=== PATIENT | male | born 1940 | race Caucasian/White ===

== ENCOUNTER → 2016-05-08 | Outpatient (CLI) | payer OTHER, MEDICARE ==
--- NOTE | 2016-05-08 15:00 | MR ---
MRI of the Lumbar Spine (Without Contrast) Clinical Indications: Low back pain and right lower extremity radicular symptomatology in a 75-year-o ld male. Technique: Sagittal and axial T1 and T2 MR sequences of the lumbar spine are performed without con trast. A sagittal STIR sequence was also obtained. Comparison to the previous lumbar MRI examination January 01, 2008. Findings: Lumbar vertebral bodies are of normal height without compression fractures. Conus medulla ris appears normal and ends at L1. T12-L1: Negative for disk herniation, canal stenosis, or nerve root compression. L1-L2: Negative for disk herniation or canal stenosis. There is facet hypertrophy without nerve root compression. L2-L3: Negative for disk herniation or canal stenosis. Facet hypertrophy is seen without nerve root i mpingement. L3-L4: Negative for disk herniation or canal stenosis. There is facet hypertrophy and ligamentous pro minence without significant neural foraminal impingement or nerve root compression. L4-L5: There is a diffuse disk bulge which is eccentric toward the right side where there may be an e lement of lateral disk herniation. Additionally, there is bilateral facet hypertrophy and ligamentous prominence. There is bilateral lateral recess stenosis, and there is moderate right neural foraminal impingement with compression of the L4 nerve root noted. L5-S1: Negative for disk herniation, canal stenosis, or nerve root compression. Impressions 1. Diffuse disk bulge, possible minimal right lateral disk herniation, as well as facet hypertrophy o n the right at L4-L5 results in compression of the right L4 nerve root. This could account for right lower extremity radicular symptomatology. 2. See the above report for findings at other levels.
== END ==
LOC: FIMAGING 10:47
PROVIDERS: ATTEND Physician Assistant
DX: M54.5 Low back pain (principal)

== ENCOUNTER → 2016-07-04 | Outpatient (CLI) | payer OTHER, MEDICARE | LOC: BHFA 09:30 | PROVIDERS: ATTEND Internal Medicine Cardiovascular Disease | DX: I25.10 Atherosclerotic heart disease of native coronary artery without angina pectoris (principal); I10 Essential (primary) hypertension | CPT/HCPCS: 78452; 93017; A9500; J2785 ==

== ENCOUNTER 2017-03-16 07:26 | Observation (INO) | payer OTHER, MEDICARE ==
[2017-03-16] MEDS ORDERED: diphenhydrAMINE 25 MG CAP PO ONE ×2 (07:30→07:51)
[2017-03-16] MEDS ORDERED: ASPIRIN EC 325 MG TAB PO ONE ×2 (07:30→07:52)
[2017-03-16] MEDS ORDERED: DIAZEPAM 5 MG TAB PO ONE (07:30)
[2017-03-16] MEDS ORDERED: NS 1,000 ML IV ONE (07:30)
[2017-03-16] MEDS ORDERED: FAMOTIDINE 20 MG TAB PO ONE (07:30)
[2017-03-16] MEDS ORDERED: FAMOTIDINE 20 MG TAB ONE (07:51)
[2017-03-16] MEDS ORDERED: DIAZEPAM 5 MG TAB ONE (07:53)
--- NOTE | 2017-03-16 07:53 | CPEKG ---
Heart Rate: 48 RR Interval: 1250 P-R Interval: 172 QRSD Interval: 96 QT Interval: 492 QTC Interval: 440 P [place]: 35 QRS [place]: 35 T Wave [place]: 9 EKG Severity - OTHERWISE NORMAL ECG - EKG Impression: SINUS BRADYCARDIA EKG Impression: NON-SPECIFIC ST DEPRESSION Electronically Signed By: Robert Akins 16-Mar-2017 11:44:53
[2017-03-16 08:13] LABS: % IMMATURE GRANULYOCYTES 0.3 % (0.0-1.1); ABSOLUTE IMMATURE GRANULOCYTES 0.02 10^3/uL (0.00-0.10); ADD DIFF? NO; ADD MORPH? NO; ADD SCAN? NO; ATYPICAL LYMPHOCYTE FLAG 0 (0-99); FRAGMENT RBC FLAG 0 (0-99); HEMATOCRIT 41.5 % (40.0-51.0); HEMOGLOBIN 14.8 g/dL (13.7-17.5); LEFT SHIFT FLG 0 (0-99); LIPEMIA HEMOLYSIS FLAG 90 (0-99); MEAN CELL HEMOGLOBIN 30.1 pg (27.9-34.1); MEAN CELL HEMOGLOBIN CONCENTR. 35.7 g/dL (32.4-36.7); MEAN CELL VOLUME 84.5 fL (81.5-99.8); MEAN PLATELET VOLUME 9.8 fL (8.7-11.7); PLATELET CLUMPS FLAG 0 (0-99); PLATELET COUNT 162 10^3/uL (150-400); RED BLOOD CELL COUNT 4.91 10^6/uL (4.40-6.38); RED CELL DISTRIBUTION WIDTH 12.4 % (11.5-15.2)
[2017-03-16 08:23] LABS: INR 1.09 (0.83-1.16)
[2017-03-16 08:29] LABS: ANION GAP 12 mEq/L (8-16); CALCIUM 9.6 mg/dL (8.5-10.4); CARBON DIOXIDE 27 mEq/l (22-31); CHLORIDE 104 mEq/L (97-110); CHOLESTEROL 145 mg/dL (140-220); CHOLESTEROL/HDL RATIO 4.14 RATIO (1.00-4.97); GLOMERULAR FILTRATION RATE > 60; GLUCOSE 141 mg/dL (70-100); HIGH DENSITY LIPOPROTEIN 35 mg/dL (40-65); LOW DENSITY LIPOPROTEIN 42 mg/dL (80-100); MAGNESIUM 1.7 mg/dL (1.6-2.3); NON-HIGH DENSITY LIPOPROTEIN 110 mg/dL (90-129); POTASSIUM 3.9 mEq/L (3.5-5.2); SODIUM 143 mEq/L (134-144); TRIGLYCERIDE 340 mg/dL (40-150); VERY LOW DENSITY LIPOPROTEINS 68 mg/dL (8-25)
[2017-03-16] MEDS ORDERED: LIDOCAINE 1% 300 MG/30 ML SDV ONE (09:03)
[2017-03-16] MEDS ORDERED: MIDAZOLAM 2 MG/2 ML VIAL ONE (09:04)
[2017-03-16] MEDS ORDERED: VERAPAMIL 5 MG/2 ML VIAL ONE (09:04)
[2017-03-16] MEDS ORDERED: HEPARIN 10,000 UNIT/10 ML MDV ONE (09:04)
[2017-03-16] MEDS ORDERED: fentaNYL 100 MCG/2 ML INJ ONE (09:04)
[2017-03-16] MEDS ORDERED: IOPAMIDOL (ISOVUE-370) 150 ML BTL IV ONE (09:05)
--- NOTE | 2017-03-16 10:26 | PDHPUP ---
History & Physical Update H&P update statement: This history and physical update is based on an assessment of the patient which was completed after admission or registration (within 24 hours), but prior to the surgery/procedure. H&P update: H&P reviewed & patient examined, no change in patient's condition since H&P completed
--- NOTE | 2017-03-16 10:26 | PDPROPOC ---
Sedation Plan of Care Sedation Plan of Care: vital signs stable, mental status noted, patient educated of risks, benefits, alternatives, patient can tolerate sedation ASA Classification: ASA 1 Planned drugs: fentanyl, midazolam Mallampati Score: Class 2 Mallampati Reference Image: Patient passed 3-3-2 rule?: Yes
[2017-03-16] MEDS ORDERED: BIVALIRUDIN 250 MG/5 ML VIAL IV ONE ×2 (10:43)
[2017-03-16] MEDS ORDERED: hydrALAZINE 20 MG/ML VIAL ONE (11:05)
[2017-03-16] MEDS ORDERED: PRASUGREL HCL 10 MG TAB ONE (11:16)
[2017-03-16] MEDS ORDERED: HYDROCODONE/APAP 5/325 TAB PO PRN (11:17)
[2017-03-16] MEDS ORDERED: ACETAMINOPHEN 325 MG TAB PO PRN (11:17)
[2017-03-16] MEDS ORDERED: PRASUGREL HCL 10 MG TAB PO ONE (11:17)
[2017-03-16] MEDS ORDERED: ATROPINE SULFATE 1 MG/10 ML SYR IVP PRN (11:17)
[2017-03-16] MEDS ORDERED: ONDANSETRON 4 MG/2 ML VIAL IVP PRN (11:17)
[2017-03-16] MEDS ORDERED: NS 1,000 ML IV SCH (11:30)
--- NOTE | 2017-03-16 11:30 | PDDXCAT ---
Diagnostic Cath Note - . Date: 03/16/17 Automation Driver: Jarred Indication: CCC Class III and IV angina on medical treatment - Procedure Access: right groin Procedure: left heart catheterization, coronary angiography, left ventriculogram , vein graft injection, TRUONG injection, other (PCI of SVG to PDA) - Materials Left Heart Cath size: 6F Left Heart Cath materials: standard multipack (JL4, JR4, pigtail) - Findings-Left Heart Catheterization LM: Normal. LAD: Mid-LAD 100%. LCX: Proximal to mid-circumflex 100%; proximal portion of small OM-2 with 90% lesion. RCA: Proximal RCA 100%. TRUONG: TRUONG to LAD patent. Free Radial Artery to diagonal patent. SVG to low OM branch patent. SVG to PDA patent with focal 90% lesion in the mid-body of the graft. EDP: 27 mmHg LVEF: 60% Wall motion: Normal. Complications: None Estimated blood loss: <50ml Closure method: Angioseal Assessment: 1) Normal LV systolic function. 2) CAD as described above. 3) Successful PCI of SVG to PDA using a single drug coated stent. Intervention: Based on the patient's clinical history and diagnostic angiography, the decision was made to perform PCI of the SVG to PDA. Patient received intravenous Angiomax. A 6 [place] Multipurpose A-1 guide catheter was advanced to the ostium of the SVG to PDA. A filter wire was positioned in the distal body of the graft. A 3.5 x 24 mm Synergy stent was advanced into position and deployed at high pressure. Final angiograms demonstrated 0% residual stenosis and JESSICA-III flow.
--- NOTE | 2017-03-16 11:35 | CPEKG ---
Heart Rate: 51 RR Interval: 1176 P-R Interval: 188 QRSD Interval: 104 QT Interval: 480 QTC Interval: 443 P [place]: 61 QRS [place]: 59 T Wave [place]: -48 EKG Severity - ABNORMAL ECG - EKG Impression: SINUS RHYTHM EKG Impression: NONSPECIFIC T ABNORMALITIES, INFERIOR LEADS Electronically Signed By: Robert Akins 16-Mar-2017 11:44:24
[2017-03-16] MEDS ORDERED: ALBUTEROL 60 PUFFS/8 GM MDI IH PRN (11:38)
[2017-03-16] MEDS ORDERED: ALBUTEROL 200 PUFFS/18 GM MDI IH PRN (14:04)
[2017-03-16] MEDS ORDERED: hydrALAZINE 20 MG/ML VIAL IVP ONE (15:00)
[2017-03-16] MEDS ORDERED: PNEUMOC 13-VAL CONJ-DIP CRM/PF 0.5 ML SYR IM ONE (15:19)
[2017-03-16] MEDS: LABETALOL HCL 100 MG TAB PO SCH (20:19)
[2017-03-16] MEDS ORDERED: NON-FORMULARY NEW DRUG (Simvastatin [Zocor] 40 MG) PO SCH (21:00)
[2017-03-16] MEDS ORDERED: ATORVASTATIN CALCIUM 20 MG TAB PO SCH (21:00)
[2017-03-16] MEDS ORDERED: FAMOTIDINE 20 MG TAB PO SCH (21:00)
[2017-03-16] MEDS ORDERED: traZODone 50 MG TAB PO SCH (21:00)
[2017-03-17 06:02] LABS: % IMMATURE GRANULYOCYTES 0.2 % (0.0-1.1); ABSOLUTE IMMATURE GRANULOCYTES 0.01 10^3/uL (0.00-0.10); ADD DIFF? NO; ADD MORPH? NO; ADD SCAN? NO; ATYPICAL LYMPHOCYTE FLAG 0 (0-99); FRAGMENT RBC FLAG 0 (0-99); HEMATOCRIT 38.7 % (40.0-51.0); HEMOGLOBIN 13.3 g/dL (13.7-17.5); LEFT SHIFT FLG 0 (0-99); LIPEMIA HEMOLYSIS FLAG 90 (0-99); MEAN CELL HEMOGLOBIN 29.2 pg (27.9-34.1); MEAN CELL HEMOGLOBIN CONCENTR. 34.4 g/dL (32.4-36.7); MEAN CELL VOLUME 85.1 fL (81.5-99.8); MEAN PLATELET VOLUME 10.2 fL (8.7-11.7); PLATELET CLUMPS FLAG 0 (0-99); PLATELET COUNT 157 10^3/uL (150-400); RED BLOOD CELL COUNT 4.55 10^6/uL (4.40-6.38); RED CELL DISTRIBUTION WIDTH 12.6 % (11.5-15.2)
[2017-03-17 06:12] LABS: ALBUMIN 3.5 g/dL (3.5-5.0); ANION GAP 11 mEq/L (8-16); ASPARTATE AMINOTRANSFERASE 24 IU/L (17-59); BILIRUBIN,TOTAL 0.5 mg/dL (0.1-1.4); CALCIUM 8.8 mg/dL (8.5-10.4); CARBON DIOXIDE 25 mEq/l (22-31); CHLORIDE 105 mEq/L (97-110); GLOMERULAR FILTRATION RATE > 60; GLUCOSE 104 mg/dL (70-100); LACTATE DEHYDROGENASE 339 IU/L (313-618); MAGNESIUM 1.7 mg/dL (1.6-2.3); POTASSIUM 3.8 mEq/L (3.5-5.2); SODIUM 141 mEq/L (134-144)
[2017-03-17 06:23] LABS: LOW DENSITY LIPOPROTEIN DIRECT 49 mg/dL (80-100)
--- NOTE | 2017-03-17 08:57 | CPEKG ---
Heart Rate: 68 RR Interval: 882 P-R Interval: 176 QRSD Interval: 88 QT Interval: 416 QTC Interval: 443 P [place]: 44 QRS [place]: 28 T Wave [place]: -49 EKG Severity - NORMAL ECG - EKG Impression: SINUS RHYTHM EKG Impression: NON-SPECIFIC ST DEPRESSION Electronically Signed By: Robert Akins 17-Mar-2017 15:36:42
[2017-03-17] MEDS ORDERED: ASPIRIN EC 325 MG TAB PO SCH (09:00)
[2017-03-17] MEDS ORDERED: VALSARTAN 80 MG TAB PO SCH (09:00)
[2017-03-17] MEDS ORDERED: PRASUGREL HCL 10 MG TAB PO SCH (09:00)
[2017-03-17] MEDS ORDERED: CHLORTHALIDONE 25 MG TAB PO SCH (09:00)
[2017-03-17] MEDS: LABETALOL HCL 100 MG TAB PO SCH (10:17)
[2017-03-17 11:36] VITALS: BP 166/74; PULSE 59; RESP 14; TEMP 98.1; O2SAT 96
--- NOTE | 2017-03-17 12:14 | ASMTCMCOM ---
CM Note CM Note Notes: 03/17/2017 Case Management Note Reviewed chart, spoke w/ RN. No case management d/c needs identified d/t family support, age of pt and activity levels prior to admission. There are no PT or OT evals ordered. Case Management d/c poc: Home independent with follow up as directed when medically stable. Case management available if needs change. Date Signed: 03/17/2017 12:13 PM Electronically Signed By:Rossana Funez RN
--- NOTE | 2017-03-17 13:11 | GDS ---
[f rep st] DISCHARGE SUMMARY REASON FOR ADMISSION: Coronary artery disease. HOSPITAL COURSE: Please refer to Dr. Allen Briseno's recent office note, which serves as the admissio n history and physical for this hospital encounter. Also, refer to my dictated cardiac catheterizati on report. Briefly, the patient is a 76-year-old male with a history of coronary artery disease and previous 4-v essel bypass surgery. He presented with recurrent anginal-quality chest discomfort. Dr. Briseno ar ranged for the patient to undergo cardiac catheterization. That procedure was carried out yesterday and demonstrated severe [place] 3-vessel CAD. His TRUONG graft to the left anterior descending was chavez nt. A free radial artery graft to a diagonal branch was patent. He has a Y-shaped graft consisting of 2 saphenous vein graft segments which supply a low obtuse marginal branch and the posterior descen ding branch of the RCA. The segment of saphenous vein to the posterior descending branch had a focal 80% to 90% lesion in the mid body of the graft. PCI with placement of a single 3.5 x 24 mm drug coated stent was performed. The angiographic outcome was excellent. Overnight, he has had no cardiac symptoms and no complications at his right femoral catheterization site. He is stable for discharge. RECOMMENDATIONS AND DISPOSITION: Patient is discharged in stable condition. He will resume all his previous home medications. Effient 10 mg daily will be added to his regimen. Genetic testing for cl opidogrel metabolism is pending. He has a followup appointment with Dr. Allen Briseno on February h at 10:00. DISCHARGE DIAGNOSES: 1. Coronary artery disease. 2. Successful percutaneous coronary intervention with placement of a single drug-coated stent in the saphenous vein graft to posterior descending. /[id number]/MODL
--- NOTE | 2017-03-17 15:26 | ASDISCHSUM ---
Discharge Information Plan Status:Home with No Needs Medically Cleared to Leave:03/16/2017 Discharge Date:03/17/2017 01:26 PM CM D/C Disposition:Home, Routine, Self-Care ADT D/C Disposition:Home, Routine, Self-Care Projected Discharge Date:03/17/2017 01:26 PM Transportation at D/C:Friend Discharge Delay Reason: Follow-Up Date:03/17/2017 01:26 PM Discharge Slot: Final Diagnosis: Placement Information Patient Contact Information Contact Name:GRACIELA Relationship: Address:[address] Work Phone: City:[place] Alternate Phone: State/Zip Code:[place] [address] Email: Financial Information Financial Class: Primary Plan Desc:MEDICARE OUTPATIENT Primary Plan Number:[id number] Secondary Plan Desc:[employer]/MDR SUPPLEMENT Secondary Plan Number:[id number] Assessment Information [facility] CM Progress Note CM Note CM Note Notes: 03/17/2017 Case Management Note Reviewed chart, spoke w/ RN. No case management d/c needs identified d/t family support, age of pt and activity levels prior to admission. There are no PT or OT evals ordered. Case Management d/c poc: Home independent with follow up as directed when medically stable. Case management available if needs change. Date Signed: 03/17/2017 12:13 PM Electronically Signed By:Rossana Funez RN Intervention Information Intervention Type:*BLOUNT-Signed Date of Service:03/17/2017 09:47 AM Patient Type:Observation Staff Member:Pooja Castillo Hours: Discipline: Severity: Comment:
[2017-03-20 14:11] LABS: 2C19 DISCLAIMER See Comments; 2C19 INTERPRETATION See Comments; 2C19 METHOD See Comments
== END 2017-03-17 13:26 | disposition home or self-care (01) ==
LOC: FCATH 07:26 → F2W 11:40 → UNDOADMOB 11:40 → F2W 13:15
PROVIDERS: ADMIT Internal Medicine Interventional Cardiology; ATTEND Internal Medicine Interventional Cardiology
PROC: B2111ZZ Fluoroscopy of Multiple Coronary Arteries using Low Osmolar Contrast (ICD-10-PCS; principal; 2017-03-16)
PROC: 4A023N7 Measurement of Cardiac Sampling and Pressure, Left Heart, Percutaneous Approach (ICD-10-PCS; principal; 2017-03-16)
PROC: B2151ZZ Fluoroscopy of Left Heart using Low Osmolar Contrast (ICD-10-PCS; principal; 2017-03-16)
DX: I25.10 Atherosclerotic heart disease of native coronary artery without angina pectoris (principal); I10 Essential (primary) hypertension; G47.33 Obstructive sleep apnea (adult) (pediatric); E11.9 Type 2 diabetes mellitus without complications
CPT/HCPCS: 93005; 93458; C1760; C1874; C1884; C1887; C9600; J0360; J0583; J1644; J2250; J3010; Q9967; 81225-90

== ENCOUNTER 2018-02-02 10:49 | Day surgery (SDC) | payer OTHER, MEDICARE ==
--- NOTE | 2018-02-01 22:10 | GHP ---
DATE OF SURGERY: 02/02/2018 CHIEF COMPLAINT: Right hind foot pain. HISTORY OF PRESENT ILLNESS: Patient is a 77-year-old, who previously had undergone a right subtalar distraction arthrodesis. The patient was having continued pain. Clinically and radiographically, he was felt to have incomplete union at his arthrodesis site, resulting in his symptoms. PAST MEDICAL HISTORY: Positive for hypertension, coronary artery disease, diabetes, asthma, reflux, and rheumatoid arthritis. MEDICINES: Include chlorthalidone, famotidine, labetalol, losartan, meloxicam, metformin, Nitrostat, paroxetine, prasugrel, ProAir, simvastatin, and trazodone. ALLERGIES: He lists no drug allergies. SOCIAL HISTORY: Positive for previous tobacco smoking. PAST SURGICAL HISTORY: Positive for aforementioned orthopedic surgery. PHYSICAL EXAMINATION: GENERAL: He is alert and oriented x3. No acute distress. HEENT: Head is no rmocephalic. Pupils equal, round, reactive to light. Extraocular eye movements intact. NECK: Supp le. No JVD or lymphadenopathy. CHEST: Clear to auscultation. HEART: Regular rate and rhythm. No murmurs or gallops. ABDOMEN: Soft, nontender, nondistended. No organomegaly. GENITAL: Deferred. RECTAL: Deferred. BREAST: Deferred. EXTREMITIES: Reveals mild swelling and tenderness along th e right lateral subtalar region. Distal neurovascular exam is intact. ASSESSMENT: Nonunion right subtalar arthrodesis. PLAN: The patient is scheduled to undergo revision right subtalar arthrodesis. /[id number]/MODL
[2018-02-02] MEDS ORDERED: LR 1,000 ML IV ONE (11:03)
[2018-02-02] MEDS ORDERED: BUPIVACAINE 0.5% 30 ML SDV ONE (11:54)
[2018-02-02] MEDS ORDERED: MIDAZOLAM 2 MG/2 ML VIAL ONE (12:01)
--- NOTE | 2018-02-02 12:12 | PDANEPAE ---
ANE Past Medical History - Cardiovascular History Hx Hypertension: Yes Hx Arrhythmias: No Hx Chest Pain: No Hx Coronary Artery / Peripheral Vascular Disease: Yes Hx CHF / Valvular Disease: No Hx Palpitations: No Cardiovascular History Comment: 7 STENTS. GABG - Pulmonary History Hx COPD: No Hx Asthma/Reactive Airway Disease: Yes Hx Recent Upper Respiratory Infection: No Hx Oxygen in Use at Home: No Hx Sleep Apnea: Yes Sleep Apnea Screening Result - Last Documented: Positive Pulmonary History Comment: BEAR USE C-PAP INSTRUCTED TO BRING DOS/USES HS MOUTH GUARD. USES INHALER PRIOR TO EXERCISE - Neurologic History Hx Cerebrovascular Accident: No Hx Seizures: No Hx Dementia: No - Endocrine History Hx Diabetes: Yes Endocrine History Comment: NIDDM - Renal History Hx Renal Disorders: No - Liver History Hx Hepatic Disorders: No - Neurological & Psychiatric Hx Hx Neurological and Psychiatric Disorders: Yes Neurological / Psychiatric History Comment: WORRIES TO MUCH,STRESSES OUT - Cancer History Hx Cancer: No - Congenital Disorder History Hx Congenital Disorders: No - GI History Hx Gastrointestinal Disorders: Yes Gastrointestinal History Comment: GERD - Other Health History Other Health History: PERIPHERAL NEUROPATHY. INTERMITTENT GOUT - Chronic Pain History Chronic Pain: Yes (LT ANKLE) - Surgical History Prior Surgeries: RT TOTAL KNEE 2013. LT ANKLE ORIF. LT ANKLE RECONSTRUCTION. REMVL BLADDER STONE. GABGX4 ANE Review of Systems Review of Systems: - Exercise capacity METS (RN): 4 METS ANE Patient History - Allergies Allergies/Adverse Reactions: No Known Allergies Allergy (Unverified 09/18/09 08:42) - Home Medications Home Medications: Nitroglycerin [Nitrostat 0.4 mg (*)] 0.4 mg SL DAILY PRN 06/01/11 [Last Taken 2 tabs] PARoxetine HCL [Paxil 30mg (*)] 30 mg PO DAILY 06/01/11 [Last Taken 02/02/18] SIMVASTATIN [Zocor] 40 mg PO HS 06/01/11 [Last Taken 02/02/18] metFORMIN HCL [Glucophage 500 mg (*)] 1,000 mg PO BIDMEAL 06/01/11 [Last Taken 02/02/18] traZODone [traZODONE 50MG (*)] 25 mg PO HS 06/01/11 [Last Taken 02/02/18] Albuterol [Proventil Inhaler HFA (*)] 1 - 2 puffs IH DAILY PRN 03/16/17 [Last Taken 02/02/18] Amoxicillin Trihydrate [Amoxil] 2,000 mg PO AD PRN 03/16/17 [Last Taken Unknown] Aspirin [Aspirin 81mg (*)] 81 mg PO DAILY 03/16/17 [Last Taken 02/02/18] Chlorthalidone [Chlorthalidone 25 mg (*)] 12.5 mg PO DAILY 03/16/17 [Last Taken 03/14/17] Famotidine [Pepcid 20 MG (*)] 40 mg PO HS 03/16/17 [Last Taken 02/02/18] Labetalol HCl [Trandate 100 mg (*)] 100 mg PO BID 03/16/17 [Last Taken 02/02/18] Meloxicam 15 mg PO DAILY 03/16/17 [Last Taken 02/02/18] Herbals/Supplements -Info Only DAILY 01/28/18 [Last Taken 02/02/18] Losartan Potassium DAILY 01/28/18 [Last Taken 02/02/18] - NPO status NPO Since - Liquids (Date): 02/02/18 NPO Since - Liquids (Time): 08:00 NPO Since - Solids (Date): 02/01/18 NPO Since - Solids (Time): 19:30 - Smoking Hx Smoking Status: Former smoker ANE Labs/Vital Signs - Vital Signs Height: 176.53 cm Weight: 92.986 kg ANE Physical Exam - Airway Neck exam: FROM Mallampati Score: Class 3 Mouth exam: normal dental/mouth exam - Pulmonary Pulmonary: no respiratory distress - Cardiovascular Cardiovascular: regular rate and rhythym - ASA Status ASA Status: III ANE Anesthesia Plan Anesthesia Plan: GA w LMA Regional Anesthesia: popliteal SNB
[2018-02-02] MEDS ORDERED: fentaNYL 100 MCG/2 ML INJ ONE ×2 (12:16→12:39)
[2018-02-02] MEDS ORDERED: CEFAZOLIN 2 GM/DEXTROSE/100 ML BAG IV ONE (12:33)
[2018-02-02] MEDS ORDERED: ceFAZolin 2 GM/DEXTROSE 100 ML IV ONE (12:35)
--- NOTE | 2018-02-02 12:37 | POSTOPPROG ---
Post Op Note Date of Operation: 02/02/18 Surgeon: Daniel Galvin Anesthesia: GET(General Endotracheal) Pre-op Diagnosis: Non union L subtalar arthrodesis, retained hardware Post-op Diagnosis: same Procedure: Revision L subtalar arthrodesis, hwr Inf/Abcess present in the surg proc area at time of surgery?: No EBL: Minimal
[2018-02-02] MEDS ORDERED: LIDOCAINE 2% 100 MG/5 ML SYR ONE (12:39)
[2018-02-02] MEDS ORDERED: ONDANSETRON 4 MG/2 ML VIAL ONE (12:39)
[2018-02-02] MEDS ORDERED: ROPIVACAINE HCL 150 MG/30 ML INJ ONE (12:39)
[2018-02-02] MEDS ORDERED: DEXAMETHASONE 4 MG/ML VIAL ONE (12:39)
[2018-02-02] MEDS ORDERED: PROPOFOL 200 MG/20 ML VIAL ONE (12:40)
[2018-02-02] MEDS ORDERED: ONDANSETRON 4 MG/2 ML VIAL IVP PRN (13:37)
[2018-02-02] MEDS ORDERED: oxyCODONE IR 5 MG TAB PO PRN (13:37)
[2018-02-02] MEDS ORDERED: LR 500 ML IV PRN (13:37)
[2018-02-02] MEDS ORDERED: MEPERIDINE 25 MG/0.5 ML AMP IVP PRN (13:37)
[2018-02-02] MEDS ORDERED: fentaNYL 100 MCG/2 ML INJ IVP PRN (13:37)
[2018-02-02] MEDS ORDERED: ALBUTEROL 3 ML DEYVIAL IH PRN (13:37)
[2018-02-02] MEDS ORDERED: HYDROmorphONE/DILAUDID 2 MG/ML INJ IVP PRN (13:37)
[2018-02-02] MEDS ORDERED: NALOXONE HCL 0.4 MG/ML INJ IVP PRN (13:37)
[2018-02-02] MEDS ORDERED: PHENYLEPHRINE HCL 100 MCG/ML SYR ONE (13:48)
--- NOTE | 2018-02-02 14:58 | GOP ---
DATE OF OPERATION: 02/02/2018 SURGEON: Daniel Galvin MD ANESTHESIA: General plus popliteal block performed by the anesthesiologist at my request for postope rative pain management. PREOPERATIVE DIAGNOSIS: 1. Nonunion left subtalar arthrodesis. 2. Retained hardware. POSTOPERATIVE DIAGNOSIS: 1. Nonunion left subtalar arthrodesis. 2. Retained hardware. PROCEDURE PERFORMED: 1. Revision left subtalar arthrodesis. 2. Hardware removal, left foot. 3. Intraoperative use of fluoroscopy. FINDINGS: ESTIMATED BLOOD LOSS: Minimal. INDICATIONS: Patient is a 77-year-old who had previously undergone left subtalar arthrodesis for pos ttraumatic arthritis. The patient was having continued pain. Clinically and radiographically, he wa s felt to have a nonunion at his arthrodesis site. Based on his persistence of symptoms, refractory to nonoperative treatment, he was interested in pursuing operative treatment. From an operative mohsen dpoint, revision of subtalar arthrodesis was recommended. The patient acknowledged he understood the potential risks of the operation including, but not limited to bleeding, infection, neurovascular da mage including loss of limb function, malunion, nonunion, pain or functional limitations despite oper ative treatment count, need for hardware removal, and anesthetic risks. He acknowledged he understoo d the potential risks, planned procedure, and postoperative plan well, and had all questions answered prior to surgery. He gave his consent for the operative procedure. DESCRIPTION OF PROCEDURE: The patient was brought to the operating room after IV antibiotics were ad ministered. Popliteal block was performed by the anesthesiologist at my request for postoperative pa in management in preop holding. He was placed in supine position where general anesthetic was admini stered. A tourniquet was placed on the left thigh. The patient was transferred to a right lateral d ecubitus position on the operating table with beanbag support, axillary roll, and padding of all bony prominences. The left lower extremity was prepped and draped in standard sterile fashion. After ma rking the incision and Natalio wrap exsanguination, tourniquet was inflated to 250. Stab incisions were made on the heel overlying the previous screw heads. Dissection was carried down to the screw heads, which were cleaned with a fine-tipped curette. The screws were removed without difficulty. A porti on of 1 of the broken screws remained imbedded in the talus and was left in place. Oblique incision was made distal to the fibula, extending toward the 4th metatarsal base for exposure of the subtalar joint. Skin and subcutaneous tissue were sharply incised. Sharp dissection was car ried dorsal to the peroneal tendon, exposing the subtalar joint. Nonunion was identified. Interpose d fibrous tissue was removed with a chisel and rongeur. The subchondral bone was roughened and score d in multiple places with a chisel. A Giovana bone graft was utilized. 5 cc of Giovana graft was im pacted into place in the subtalar joint. Through the previous stab incision, new drill holes for scr ews were made. The calcaneus was drilled with 4.5 mm drill holes directed toward the body of the wendie us, with 3.2 mm holes in the talus. With the heel in appropriately reduced position, two 6.5 mm canc ellous screws with 16 mm threads were placed from the calcaneus into the talus. Excellent compressio n was achieved. Fluoroscopic views confirmed favorable hardware and arthrodesis positions. Attention was directed toward closure. The subcutaneous tissue was closed with 3-0 Vicryl suture in interrupted fashion. The skin was closed with 4-0 nylon interrupted sutures. The wounds were dresse d with sterile Adaptic, 4 x 4, and Webril, and leg was placed in a below-knee splint. The patient to lerated procedure well, was taken to the recovery room, extubated in stable condition postoperatively . All sponge, needle, and instrument counts were reported as being correct. DRAINS: None. COMPLICATIONS: None. PLAN: The patient will be discharged home, nonweightbearing on his operative extremity. /[id number]/MODL
[2018-02-02 15:13] VITALS: BP 159/121
--- NOTE | 2018-02-02 15:47 | POSTANESTH ---
Post Anesthetic Evaluation Cardiovascular Status: Normal, Stable Respiratory Status: Normal, Stable Level of Consciousness/Mental Status: Can Participate in Eval Pain Control: Adequate, Prn Tx Ordered Nausea/Vomiting Control: Adequate, Prn Tx Ordered Complications Possibly Related to Anesthesia: None Noted (Talkative and at baseline prior to DC from PACU)
== END 2018-02-02 16:12 | disposition home or self-care (01) ==
LOC: FSGY 10:49
PROVIDERS: ATTEND Orthopaedic Surgery Foot and Ankle Surgery
PROC: 0SGJ0KZ Fusion of Left Tarsal Joint with Nonautologous Tissue Substitute, Open Approach (ICD-10-PCS; principal; 2018-02-02 12:30)
DX: M96.0 Pseudarthrosis after fusion or arthrodesis (principal)
CPT/HCPCS: C1713; C1762; J0690; J1100; J2001; J2250; J2370; J2405; J2704; J2795; J3010